=== PATIENT | female | born 1980 | race Caucasian/White ===

== ENCOUNTER → 2017-02-14 | Emergency (ER) | payer OTHER ==
[~2017-02-14] MED LIST: AURYXIA210 MG PO; BEN25 PO; CAT2 PO; CAT3 PO; CORTIZONE-101 % TOP; COZAAR100 MG PO; GENTEA2 OPH; HYDROCHLOROT25 MG PO; LOP25 PO; LOP50 PO; MAGOX4 PO; MULTIVIT/MIN PO; NORCO1 TA1 PO; NORCO1 TA2; NORCO1 TA2 PO; NORV10 PO; NORV5 PO; P5 PO; PROAIR HFA INH; PROGRAF1 PO; PROGRAF5 PO; PROZAC40 MG PO; RENA-VITE PO; RENVELA800 MG PO; RISP1 PO; SB325 PO; SENSIPAR90 MG PO; SODBICAR10 PO; TEMOVATE0.053 T; TOPAMAX50 MG PO; TUMSROLL PO; ZANAFLEX 4 MG TA4 MG PO; ZYRTEC ALLGY10 MG PO; [UNRECOGNIZED DRUG - OTHER] PO
[2017-02-14 04:18] LABS: BASOPHILS 0.6 %; BASOPHILS ABSOLUTE 0.05 10/3/uL (0.0-0.16); EOSINOPHILS 12.4 %; EOSINOPHILS ABSOLUTE 1.03 10/3/uL (0.0-0.53); IMMATURE GRANULOCYTES 0.1 %; IMMATURE GRANULOCYTES ABSOLUTE 0.01 10/3/uL (0.0-0.11); LYMPHOCYTES 26.6 %; LYMPHOCYTES ABSOLUTE 2.21 10/3/uL (0.67-4.30); MEAN CORPUS HGB CONC 32.4 g/dL (32.0-36.0); MEAN CORPUSCULAR HEMOGLOB 33.6 pg (26.0-34.0); MEAN PLATELET VOLUME 10.6 fL (9.2-13.0); MONOCYTES 7.5 %; MONOCYTES ABSOLUTE 0.62 10/3/uL (0.21-1.20); NEUTROPHILS 52.8 %; RBC DISTRIBUTION WIDTH 15.5 % (12.0-16.0); RED CELL COUNT 3.27 10/6/uL (4.0-5.6)
[2017-02-14 04:19] LABS: ER CBC TAT 0 Hrs 06 MinsNP; HEMATOCRIT 33.9 % (36.0-48.0); MANUAL DIFF NO %; MEAN CORPUSCULAR VOLUME 103.7 fL (80-100); PLATELET COUNT 242 10/3/uL (150-400); WHITE BLOOD CELLS 8.3 10/3/uL (4.5-10.5)
[2017-02-14 04:35] LABS: ALBUMIN 3.4 G/DL (3.5-5.0); CHLORIDE, SERUM 106 MMOL/L (96-112); CO2 (CARBON DIOXIDE) 28 MMOL/L (24-34); GFR AFRICAN AMERICAN 4 ML/MIN (>=60); GFR NON AFRICAN AMERICAN 4 ML/MIN (>=60); POTASSIUM, SERUM 4.4 MMOL/L (3.5-5.3); SGOT(AST) 12 U/L (5-40); SGPT(ALT) 17 U/L (5-65); SODIUM, SERUM 143 MMOL/L (135-148); TOTAL BILIRUBIN 0.3 MG/DL (0-1.2); TOTAL PROTEIN 6.5 G/DL (6.0-8.5); TROPONIN I <0.02 NG/ML (<0.05)
[2017-02-14 04:42] LABS: A/G RATIO 1.1 (0.7-1.9); ALKALINE PHOSPHATASE 149 U/L (45-117); BUN (BLOOD UREA NITROGEN) 56 MG/DL (6-23); CALCIUM, SERUM 7.4 MG/DL (8.5-10.4); GLOBULIN 3.1 G/DL (2.5-4.1); GLUCOSE, SERUM 109 MG/DL (60-99)
== END | disposition home or self-care (01) ==
LOC: ER 05:04
PROVIDERS: Emergency Medicine
DX: R07.89 Other chest pain (principal); F31.9 Bipolar disorder, unspecified; Z99.2 Dependence on renal dialysis; Z87.891 Personal history of nicotine dependence; Z87.01 Personal history of pneumonia (recurrent); Z90.89 Acquired absence of other organs; Z88.5 Allergy status to narcotic agent; Z79.899 Other long term (current) drug therapy
CPT/HCPCS: 71020; 71275; 80053; 83880; 84484; 85025; 93005; 94640; 96372; 96374; 99285; J1170; J1885; Q9967

== ENCOUNTER 2017-02-19 01:33 | Emergency (ER) | payer OTHER ==
[2017-02-19 01:33] LABS: BASOPHILS 0.5 %; BASOPHILS ABSOLUTE 0.04 10/3/uL (0.0-0.16); EOSINOPHILS 11.2 %; EOSINOPHILS ABSOLUTE 0.95 10/3/uL (0.0-0.53); HEMOGLOBIN 10.8 g/dL (12.0-16.0); IMMATURE GRANULOCYTES 0.2 %; IMMATURE GRANULOCYTES ABSOLUTE 0.02 10/3/uL (0.0-0.11); LYMPHOCYTES ABSOLUTE 2.55 10/3/uL (0.67-4.30); MEAN CORPUS HGB CONC 32.6 g/dL (32.0-36.0); MEAN CORPUSCULAR HEMOGLOB 33.9 pg (26.0-34.0); MEAN CORPUSCULAR VOLUME 103.8 fL (80-100); MEAN PLATELET VOLUME 10.2 fL (9.2-13.0); MONOCYTES 6.5 %; MONOCYTES ABSOLUTE 0.55 10/3/uL (0.21-1.20); NEUTROPHILS 51.6 %; NEUTROPHILS ABSOLUTE 4.39 10/3/uL (2.02-8.40); PLATELET COUNT 240 10/3/uL (150-400); RBC DISTRIBUTION WIDTH 15.2 % (12.0-16.0); RED CELL COUNT 3.19 10/6/uL (4.0-5.6); WHITE BLOOD CELLS 8.5 10/3/uL (4.5-10.5)
[~2017-02-19 01:33] MED LIST changes: -AURYXIA210 MG PO; -BEN25 PO; -COZAAR100 MG PO; -NORCO1 TA2; -NORCO1 TA2 PO; -PROAIR HFA INH; -PROZAC40 MG PO; -RENA-VITE PO; -RENVELA800 MG PO; -SENSIPAR90 MG PO; -ZANAFLEX 4 MG TA4 MG PO
[2017-02-19 01:34] LABS: HEMATOCRIT 33.1 % (36.0-48.0); MANUAL DIFF NO %
[2017-02-19 01:44] LABS: INTERNATIONAL NORMAL RATI 1.1 UNITS (-); PARTIAL THROMBO TIME 39.4 SEC (22.5-37.2)
[2017-02-19 01:53] LABS: ALBUMIN 3.4 G/DL (3.5-5.0); CALCIUM, SERUM 7.9 MG/DL (8.5-10.4); CHEST PAIN PROFILE TAT 0 Hrs 25 Mins; CHLORIDE, SERUM 106 MMOL/L (96-112); CO2 (CARBON DIOXIDE) 26 MMOL/L (24-34); DIRECT BILIRUBIN 0.1 MG/DL (0.0-0.4); GLUCOSE, SERUM 139 MG/DL (60-99); INDIRECT BILIRUBIN(NOT ORDER) 0.2 MG/DL (0.1-0.9); SGOT(AST) 10 U/L (5-40); SGPT(ALT) 15 U/L (5-65); SODIUM, SERUM 144 MMOL/L (135-148); TOTAL BILIRUBIN 0.3 MG/DL (0-1.2); TOTAL PROTEIN 6.6 G/DL (6.0-8.5); TROPONIN I <0.02 NG/ML (<0.05)
[2017-02-19 01:54] LABS: ALKALINE PHOSPHATASE 196 U/L (45-117); BUN (BLOOD UREA NITROGEN) 74 MG/DL (6-23); GFR AFRICAN AMERICAN 4 ML/MIN (>=60); GFR NON AFRICAN AMERICAN 3 ML/MIN (>=60)
[2017-05-20] MEDS ORDERED: SENSIPAR90 MG PO (22:45)
[2017-05-20] MEDS ORDERED: NORCO1 TA2 (22:46)
[2017-05-21] MEDS ORDERED: NORV5 PO (18:18)
[2017-05-21] MEDS ORDERED: SODBICAR10 PO (18:18)
[2017-05-21] MEDS ORDERED: RISP1 PO (18:18)
[2017-05-21] MEDS ORDERED: PROZAC40 MG PO (18:18)
[2017-05-21] MEDS ORDERED: NORCO1 TA2 PO (18:19)
[2017-05-21] MEDS ORDERED: RENA-VITE PO (18:19)
[2017-05-21] MEDS ORDERED: CAT3 PO (18:24)
[2017-05-21] MEDS ORDERED: SENSIPAR90 MG PO (18:24)
[2017-05-21] MEDS ORDERED: LOP25 PO (18:25)
[2017-05-21] MEDS ORDERED: RENVELA800 MG PO (18:25)
[2017-05-21] MEDS ORDERED: PROAIR HFA INH (18:25)
[2017-05-21] MEDS ORDERED: ZANAFLEX 4 MG TA4 MG PO (18:25)
[2017-05-21] MEDS ORDERED: AURYXIA210 MG PO (18:26)
[2017-05-21] MEDS ORDERED: BEN25 PO (18:26)
[2017-05-23] MEDS ORDERED: COZAAR100 MG PO (13:16)
== END 2017-02-19 03:24 | disposition home or self-care (01) ==
LOC: ER 01:33
PROVIDERS: Nurse Practitioner
DX: R10.9 Unspecified abdominal pain (principal); R06.02 Shortness of breath; N18.9 Chronic kidney disease, unspecified; F17.200 Nicotine dependence, unspecified, uncomplicated; Z88.5 Allergy status to narcotic agent; Z79.899 Other long term (current) drug therapy
CPT/HCPCS: 71010; 74176; 80048; 80076; 83690; 83735; 84484; 85025; 85610; 85730; 99285; A9270-GY